=== PATIENT | female | born 1980 | race African-American/Black ===

== ENCOUNTER 2017-07-11 12:15 | Inpatient (IN) | payer OTHER ==
[~2017-07-11] VITALS: Ht 162.6 cm; Wt 131.9 kg
--- NOTE | ~2017-07-11 | HC ---
[facility] [place] [address] CONSULTATION Name: JULISSA PEDRO Room #: 207-P [facility] IN M.R.#: [id number] Admission: 07/11/17 Attend Phys: Lyle Cadet MD Discharge: 07/15/17 Date of : 76 Report #: [id number] THIS REPORT FOR: //name// CC: FAM unknown Itz Escobedo REFERRAL PHYSICIAN: Itz Escobedo DO REASON FOR REFERRAL: Hypoxia. HISTORY OF PRESENT ILLNESS: The patient is a 37-year-old -Welsh female who presents to the emergency room with progressive abdominal pain, chest pain, and dyspnea. A pulmonary consultation was requested. The patient states that she normally gets a care from [facility]. She has been told that she has sleep apnea, COPD, asthma, and heart failure. She has undergone a pacemaker placement in the past. She continues to smoke about 4 cigarettes a day. She was in her usual state of health until earlier yesterday when she started to develop abdominal discomfort, sharp chest pain. For that reason, she presented to the emergency room. Chest x-ray and chest CT were reviewed. Chest x-ray shows vascular congestion. CT chest showed no evidence of pulmonary embolus. Airspace pulmonary edema is noted bilaterally. The patient otherwise denies any recent febrile illness, nausea, vomiting, diarrhea, or productive cough. PAST MEDICAL HISTORY: Notable for asthma, history of COPD, sleep apnea, on CPAP; morbid obesity, cardiomyopathy and heart failure in the past, tobacco abuse, and history of hiatal hernia. PAST SURGICAL HISTORY: As mentioned above, status post pacemaker placement. ALLERGIES: None noted. HOME MEDICATIONS: List are reviewed. This would include aripiprazole, Coreg, trazodone, digoxin, spironolactone, Lasix, Advair, Lipitor, Cymbalta, oxycodone, Topamax, fluticasone nasal spray, Diovan, and albuterol MDI. FAMILY HISTORY: Noncontributory. SOCIAL HISTORY: Tobacco history as mentioned above, smoking less than a half a pack a day, she lives with the family. She denies any alcohol use. Past history of drug abuse. [facility] [address] [address] CONSULTATION Name: JULISSA PEDRO Room #: 207-P [facility] IN [facility].#: [id number] Admission: 07/11/17 Attend Phys: Lyle Cadet MD Discharge: 07/15/17 Date of : 76 Report #: [id number] REVIEW OF SYSTEMS: As mentioned above, it is notable for morbid obesity for many years. Otherwise, 10-point system review negative. PHYSICAL EXAMINATION: GENERAL: She is awake, alert, in no distress. VITAL SIGNS: His temperature is 98 degrees Fahrenheit, pulse is 80, respiratory rate is 18, blood pressure 124/81 mmHg, and saturation is 99%. HEENT: Normocephalic, atraumatic. NECK: Supple without any lymphadenopathy or thyromegaly. CHEST: Breath sounds are decreased bilaterally. Few scattered crackles. No wheezes. CARDIOVASCULAR: Heart sounds are distant. No obvious murmurs or gallops. Pulses are 2+/4+ bilaterally. BREASTS: Deferred. ABDOMEN: Obese, soft, nontender, no organomegaly or masses felt. GENITOURINARY: Deferred. RECTAL: Deferred. EXTREMITIES: Trace edema, no cyanosis or clubbing. LABORATORY DATA: Portable chest x-ray and CT chest as mentioned above showing no obvious evidence of pulmonary emboli, though the exam was felt to be suboptimal due to the patient size, cardiomegaly, bilateral ground glass interstitial opacity and airspace opacities are noted. Urine drug screen was positive for PCP. Ultrasound of the lower extremities showed no evidence of DVT. BNP was 3600. Troponin 0.24. TSH was 0.53, normal. Digoxin level was 0.2. Arterial blood gas revealed pH 7.29, pCO2 of 63, pO2 of 65 on 2 liters of O2. Electrolytes unremarkable. Creatinine is 1.1. Liver function test was grossly unremarkable. Albumin 3.8. WBC 4700, hemoglobin 16.3, platelets are normal, no evidence of bandemia. IMPRESSION: 1. Acute on chronic hypercapnic hypoxic respiratory failure in this 37-year-old morbidly obese -Welsh female. Chest x-ray and chest CT suggest pulmonary edema. She presents with abdominal pain and chest pain with mildly elevated troponin. The patient likely has acute on chronic heart failure, suspect combined. Pulmonary embolus is felt to be less likely. Pneumonia is unlikely given findings. 2. History of obstructive sleep apnea, likely obesity hypoventilation syndrome given abnormal arterial blood gas. 3. History of asthma/chronic obstructive pulmonary disease. The patient likely has asthma related morbid obesity, though because she smoked, cannot rule out chronic obstructive pulmonary disease. 4. Cardiomyopathy, suspect nonischemic related to her sleep disorder. Troponin [facility] [address] [place] [address] CONSULTATION Name: JULISSA PEDRO Room #: 207-P [facility] IN M.R.#: [id number] Admission: 07/11/17 Attend Phys: Lyle Cadet MD Discharge: 07/15/17 Date of : 76 Report #: [id number] is elevated. Cardiology has been consulted. Suspect related to increased myocardial demand due to heart failure. 5. Recent abdominal pain and chest pain as mentioned above. 6. Tobacco abuse. 7. Drug abuse. Urine drug screen was positive for PCP. 8. Morbid obesity. RECOMMENDATION: Agree with current treatment plans including diuresis. We will resume noninvasive positive pressure ventilation during sleep. Wean O2 for saturation 90%. Continue bronchodilators. I do not think the patient needs corticosteroid at this time as presentation is more of heart failure rather than exacerbation of asthma. I have also discussed with the patient the importance of smoke cessation and weight loss given her relatively young age and severe comorbid cardiac and pulmonary disorder. The patient voices understanding. DVT and GI prophylaxis will be addressed. Thank you for this consultation. <ELECTRONICALLY SIGNED> By: Nemesio Jimenez MD 07/18/17 1233 1237 1837 Nemesio Jimenez MD /nt
--- NOTE | ~2017-07-11 | 2DMMODE ---
[facility] [address] [place] [address] 2 D/M-MODE ECHOCARDIOGRAM Name: TREVOR PEDRORaymundo HANNA Room #: 207-P ADM IN M.R.#: [id number] Admission: 07/11/17 Attend Phys: Itz Escobedo, Discharge: Date of : 76 Date of Service: 07/12/17 1435 Report #: [id number] THIS REPORT FOR: //name// APPROVED REPORT Study performed: 07/12/2017 13:13:37 EXAM: Comprehensive 2D, Doppler, and color-flow Echocardiogram Patient Location: Bedside Room #: [facility] Status: routine BSA: 2.28 HR: 77 bpm BP: 124/81 mmHg Other Information Study Quality: Fair Indications Congestive Heart Failure Cardiomyopathy 2D Dimensions RVDd: 48.42 mm LVEF(%): 37.37 (>50%) IVSd: 8.56 (7-11mm) LVOT Diam: 19.58 (18-24mm) LVDd: 68.10 mm PWd: 10.70 (7-11mm) Ascending Ao: 28.93 (22-36mm) LVDs: 55.47 (25-40mm) Aortic Root: 28.13 mm IVC: 2.50 mm Marques's LVEF: 37.37 % Volumes Left Atrial Volume (Systole) Single Plane 4CH: 87.54 mL Single Plane 2CH: 61.93 mL LA ESV Index: 36.00 mL/m2 Aortic Valve AoV Peak Brian.: 1.12 m/s AO Peak Gr.: 5.05 mmHg LVOT Max P.42 mmHg LVOT Max V: 0.92 m/s RACHELLE Vmax: 2.47 cm2 Mitral Valve E/A Ratio: 0.9 MV Decel. Time: 256.32 ms [facility] [employer] [place] [address] 2 D/M-MODE ECHOCARDIOGRAM Name: WILLISTREVORRaymundo HANNA Room #: 207-P [facility] IN M.R.#: [id number] Admission: 07/11/17 Attend Phys: Itz Escobedo, Discharge: Date of : 76 Date of Service: 07/12/17 1435 Report #: [id number] MV E Max Brian.: 0.81 m/s MV A Brian.: 0.91 m/s MV PHT: 74.33 ms IVRT: 96.89 ms Pulmonary Valve PV Peak Brian.: 1.00 m/s PV Peak Gr.: 3.99 mmHg Tricuspid Valve TR Peak Brian.: 3.01 m/s RAP Estimate: 10.00 mmHg TR Peak Gr.: 36.30 mmHg PA Pressure: 46.00 mmHg Left Ventricle Left ventricle is dilated. There is normal left ventricular wall thickness. Left ventricular systolic function is severely decreased. LVEF is 25%. Grade I - abnormal relaxation pattern. Right Ventricle Right ventricle is dilated. Right ventricle is moderately hypokinetic. Pacemaker lead is present in the right ventricle. Atria Left atrium is dilated. Right atrium is dilated. Pacemaker lead is present in the right atrium. Aortic Valve The aortic valve is normal in structure. No aortic regurgitation is present. There is no aortic valvular stenosis. Mitral Valve The mitral valve is normal in structure. Mild mitral regurgitation. No evidence of mitral valve stenosis. Tricuspid Valve The tricuspid valve is normal in structure. There is trace to mild tricuspid regurgitation. The right atrial pressure is estimated at 10 mmHg. There is moderate pulmonary hypertension with an estimated PAP of 46 mmHg. Pulmonic Valve The pulmonary valve is normal in structure. There is no pulmonic valvular regurgitation. Great Vessels The aortic root is normal in size. The ascending aorta is normal in [address] [address] 2 D/M-MODE ECHOCARDIOGRAM Name: JULISSA PEDRO HANNA Room #: 207-P [facility] IN [facility]#: [id number] Admission: 07/11/17 Attend Phys: Itz Escobedo, Discharge: Date of : 76 Date of Service: 07/12/17 1435 Report #: [id number] size. IVC is dilated. Pericardium There is no pericardial effusion. <Conclusion> Left ventricle is dilated. Left ventricular systolic function is severely decreased. LVEF is 25%. Right ventricle is dilated. Right ventricle is moderately hypokinetic. Pacemaker lead is present in the right ventricle. Left atrium is dilated. Right atrium is dilated. Pacemaker lead is present in the right atrium. The aortic valve is normal in structure. The mitral valve is normal in structure. Mild mitral regurgitation. The tricuspid valve is normal in structure. There is trace to mild tricuspid regurgitation. The right atrial pressure is estimated at 10 mmHg. There is moderate pulmonary hypertension with an estimated PAP of 46 mmHg. <ELECTRONICALLY SIGNED> By: Diallo Webb MD 07/12/17 1435 1435 1435 Diallo Webb MD /INF
--- NOTE | ~2017-07-11 | EKG ---
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 07/12/17 0855 1244 1244 Diego Villagomez MD, FACC /EPI
[~2017-07-11 12:15] MED LIST: ADVAIRDISKUS; FUROSEMIDE 20 M20 M1 PO; LANOXIN 0.120.125 M2 PO; SPIRONOLACTONE
[2017-07-11 12:25] VITALS: BP 124/86
[2017-07-11 13:50] LABS: ABG SAMPLE TYPE ARTERIAL; BE(vivo) 1.7 mmol/L (-2 to +3); HCO3 30.3 mmol/L (22.0-26.0); LACTATE 1.55 mmol/L (0.5-2.0); O2(CT) 20.6 mL/dL (15.0-23.0); PCO2 63.5 mmHg (35.0-45.0); PO2 65.1 mmHg (80.0-100.0); pH 7.297 (7.360-7.450); sO2 90.1 % (92.0-98.0); tCO2 32.3 mmol/L (24.0-30.0)
[2017-07-11 13:51] LABS: FIO2 28 %; STICK SITE R.BRACHIAL
[2017-07-11 13:54] LABS: ABSOLUTE NEUTROPHILS 3.4 thou/uL (1.4-8.2); BASOPHILS 1.2 % (0.0-2.0); EOSINOPHILS 1.7 % (0.0-3.0); HEMATOCRIT 49.7 % (37.0-47.0); HEMOGLOBIN 16.3 gm/dL (12.0-15.0); LYMPHOCYTES 17.7 % (24.0-44.0); MCH 33.2 pg (26.0-34.0); MCHC 32.8 g/dL (28.0-37.0); MCV 101.1 fL (80.0-100.0); MONOCYTES 7.4 % (1.0-8.0); PLATELET COUNT 177 thou/uL (150-400); RBC 4.91 mil/uL (4.20-5.00); RDW 16.2 % (10.5-14.5); WBC 4.7 thou/uL (4.0-11.0)
[2017-07-11 13:56] LABS: MANUAL DIFF NO
[2017-07-11 13:58] LABS: CALCIUM 9.4 mg/dL (8.5-10.1); CREATININE 1.1 mg/dL (0.6-1.0); POTASSIUM 4.4 mmol/L (3.5-5.1)
[2017-07-11 14:07] LABS: ALBUMIN 3.8 g/dL (3.4-5.0); TOTAL BILIRUBIN 1.3 mg/dL (<0.1-1.0); TOTAL PROTEIN 7.6 g/dL (6.4-8.2); TROPONIN-I 0.26 ng/mL (<0.04-0.07)
[2017-07-11] MEDS ORDERED: ARIPIPRAZOLE15 MG PO (14:32)
[2017-07-11] MEDS ORDERED: ATORVASTATIN CA40 MG PO (14:34)
[2017-07-11] MEDS ORDERED: CARVEDILOL25 MG PO (14:34)
[2017-07-11] MEDS ORDERED: CYMBALTA60 MG PO (14:35)
[2017-07-11] MEDS ORDERED: TRAZODONE HCL50 MG (14:36)
[2017-07-11] MEDS ORDERED: OXYCODONE HCL10 MG (14:37)
[2017-07-11] MEDS ORDERED: TOPAMAX 25 MG T25 M1 PO (14:38)
[2017-07-11] MEDS ORDERED: OXYCONTIN10 M1 PO (14:40)
[2017-07-11] MEDS ORDERED: ZOFRAN ODT4 MG (14:42)
[2017-07-11] MEDS ORDERED: FLUTICASONE PRO16 GM NS (14:43)
[2017-07-11] MEDS ORDERED: DIOVAN 80 MG TA80 M1 PO (14:44)
[2017-07-11] MEDS ORDERED: VENTOLIN HFA 1818 GM INH (14:45)
[2017-07-11] MEDS ORDERED: DIGOXIN125 MCG PO (14:47)
[2017-07-11 14:52] LABS: ABG SAMPLE TYPE ARTERIAL; BE(vivo) 2.1 mmol/L (-2 to +3); HCO3 30.1 mmol/L (22.0-26.0); LACTATE 1.79 mmol/L (0.5-2.0); O2(CT) 21.6 mL/dL (15.0-23.0); O2Hb 90.4 % (92.0-98.0); PCO2 59.5 mmHg (35.0-45.0); PO2 80.4 mmHg (80.0-100.0); sO2 94.8 % (92.0-98.0); tCO2 31.9 mmol/L (24.0-30.0)
[2017-07-11 14:53] LABS: Pressure Support 8 cm H20; STICK SITE L.RADIAL; pH 7.322 (7.360-7.450)
[2017-07-11 16:28] LABS: APTT 23.4 Seconds (24.5-32.8); INR 1.1; PROTIME 11.1 Seconds (9.3-11.4)
[2017-07-11 17:30] VITALS: BP 124/100
[2017-07-11 18:10] VITALS: BP 140/111
[2017-07-11 19:20] VITALS: BP 158/107
[2017-07-11 23:52] VITALS: BP 129/93
[2017-07-12 00:53] LABS: AMP/METHAMP Negative (Negative); BARBITURATES Negative (Negative); BENZODIAZEPINES Negative (Negative); COCAINE Negative (Negative); METHADONE Negative (Negative); OPIATES Negative (Negative); PCP POSITIVE (Negative); THC Negative (Negative)
[2017-07-12 03:56] VITALS: BP 128/93
[2017-07-12 05:24] LABS: HEMATOCRIT 52.6 % (37.0-47.0); HEMOGLOBIN 16.9 gm/dL (12.0-15.0); MCH 32.5 pg (26.0-34.0); MCHC 32.1 g/dL (28.0-37.0); MCV 101.3 fL (80.0-100.0); PLATELET COUNT 200 thou/uL (150-400); RDW 16.3 % (10.5-14.5); WBC 10.1 thou/uL (4.0-11.0)
[2017-07-12 05:28] LABS: MANUAL DIFF YES
[2017-07-12 05:40] LABS: ANION GAP 5 mmol/L (7-16); BUN 14 mg/dL (7-18); CALCIUM 9.5 mg/dL (8.5-10.1); CHLORIDE 102 mmol/L (98-107); CHOLESTEROL 116 mg/dL (<200); CO2 35 mmol/L (21-32); CREATININE 1.1 mg/dL (0.6-1.0); GLUCOSE 144 mg/dL (74-106); HDL CHOLESTEROL 35 mg/dL (>40); LDL CHOLESTEROL 71 mg/dL (<100); SODIUM 142 mmol/L (136-145); TC:HDL 3.3 Ratio (Not establshd); TRIGLYCERIDE 51 mg/dL (<150); TROPONIN-I 0.19 ng/mL (<0.04-0.07); VLDL 10 mg/dL (<40)
[2017-07-12 05:41] LABS: SERUM ASSESSMENT Clear
[2017-07-12 06:03] LABS: TSH 0.533 uIU/mL (0.358-3.740)
[2017-07-12 07:05] VITALS: BP 129/87
[2017-07-12 07:58] LABS: ABSOLUTE NEUTROPHILS 9.1 thou/uL (1.4-8.2); ANISOCYTOSIS 1+; TOTAL CELL COUNT 100
[2017-07-12 10:25] LABS: ABG SAMPLE TYPE ARTERIAL; BE(vivo) 4.7 mmol/L (-2 to +3); HCO3 31.2 mmol/L (22.0-26.0); LACTATE 1.43 mmol/L (0.5-2.0); O2Hb 93.4 % (92.0-98.0); STICK SITE L.RADIAL; pH 7.396 (7.360-7.450); sO2 95.5 % (92.0-98.0); tCO2 32.8 mmol/L (24.0-30.0)
[2017-07-12 11:32] VITALS: BP 124/81
[2017-07-12 15:37] VITALS: BP 139/100
[2017-07-12 19:25] VITALS: BP 132/88
[2017-07-13 01:11] LABS: GLYCOHEMOGLOBIN (HGB A1C) 6.9 % (4.8-5.6)
[2017-07-13 03:09] LABS: ABSOLUTE NEUTROPHILS 9.9 thou/uL (1.4-8.2); BASOPHILS 0.2 % (0.0-2.0); EOSINOPHILS 0.8 % (0.0-3.0); HEMATOCRIT 49.5 % (37.0-47.0); HEMOGLOBIN 15.7 gm/dL (12.0-15.0); LYMPHOCYTES 11.9 % (24.0-44.0); MCHC 31.6 g/dL (28.0-37.0); MCV 101.1 fL (80.0-100.0); MONOCYTES 6.5 % (1.0-8.0); PLATELET COUNT 191 thou/uL (150-400); POLYS 80.6 % (36.0-66.0); RDW 16.2 % (10.5-14.5); WBC 12.3 thou/uL (4.0-11.0)
[2017-07-13 03:16] LABS: MANUAL DIFF NO
[2017-07-13 03:30] LABS: ALBUMIN 3.4 g/dL (3.4-5.0); CALCIUM 9.1 mg/dL (8.5-10.1); CREATININE 1.4 mg/dL (0.6-1.0); MAGNESIUM 1.8 mg/dL (1.8-2.4); POTASSIUM 3.7 mmol/L (3.5-5.1); TOTAL BILIRUBIN 0.9 mg/dL (<0.1-1.0); TOTAL PROTEIN 6.8 g/dL (6.4-8.2)
[2017-07-13 05:27] VITALS: BP 132/88
[2017-07-13 07:05] LABS: ABG SAMPLE TYPE ARTERIAL; BE(vivo) 5.8 mmol/L (-2 to +3); HCO3 34.3 mmol/L (22.0-26.0); LACTATE 1.39 mmol/L (0.5-2.0); O2(CT) 22.2 mL/dL (15.0-23.0); O2Hb 93.8 % (92.0-98.0); PCO2 65.4 mmHg (35.0-45.0); PO2 79.4 mmHg (80.0-100.0); pH 7.338 (7.360-7.450); sO2 94.7 % (92.0-98.0); tCO2 36.3 mmol/L (24.0-30.0)
[2017-07-13 07:06] LABS: STICK SITE R.BRACHIAL
[2017-07-13 07:15] VITALS: BP 112/74
[2017-07-13 11:20] VITALS: BP 110/72
[2017-07-13 15:20] VITALS: BP 101/78
[2017-07-13 20:30] VITALS: BP 109/72
[2017-07-14 04:30] VITALS: BP 116/68
[2017-07-14 06:42] LABS: CALCIUM 9.2 mg/dL (8.5-10.1); CREATININE 1.2 mg/dL (0.6-1.0); POTASSIUM 3.8 mmol/L (3.5-5.1)
[2017-07-14 09:33] VITALS: BP 139/84
[2017-07-14 11:02] VITALS: BP 107/63
[2017-07-14 19:56] VITALS: BP 128/86
[2017-07-15 03:00] VITALS: BP 121/81
[2017-07-15 03:26] LABS: CALCIUM 9.4 mg/dL (8.5-10.1); CREATININE 1.1 mg/dL (0.6-1.0); POTASSIUM 3.2 mmol/L (3.5-5.1)
[2017-07-15 07:29] VITALS: BP 109/78
[2017-07-15 07:29] LABS: ABG SAMPLE TYPE ARTERIAL; BE(vivo) 12.5 mmol/L (-2 to +3); HCO3 40.2 mmol/L (22.0-26.0); LACTATE 1.64 mmol/L (0.5-2.0); O2(CT) 24.2 mL/dL (15.0-23.0); O2Hb 86.8 % (92.0-98.0); PCO2 59.1 mmHg (35.0-45.0); pH 7.451 (7.360-7.450); tCO2 42.1 mmol/L (24.0-30.0)
[2017-07-15 07:32] LABS: PO2 49.8 mmHg (80.0-100.0); STICK SITE R.BRACHIAL
[2017-07-15] MEDS ORDERED: POTASSIUM20 PO (07:56)
[2017-07-15 12:21] VITALS: BP 128/83
[2017-07-15 13:37] VITALS: BP 128/83
[2017-07-15 15:30] VITALS: BP 128/83
== END 2017-07-15 15:41 | disposition home or self-care (01) | DRG 291 ==
LOC: ER 12:15 → 2N 16:33 → EROBS 16:33 → 2N 17:33 → ENTRNSPT 07-15 15:25 → EDTRNSPTSTS 07-15 15:29 → 2N 07-15 15:41
PROVIDERS: Internal Medicine Endocrinology, Diabetes & Metabolism; Internal Medicine Geriatric Medicine; Internal Medicine Pulmonary Disease; Nurse Practitioner Family; Physician Assistant
PROC: 5A09457 Assistance with Respiratory Ventilation, 24-96 Consecutive Hours, Continuous Positive Airway Pressure (ICD-10-PCS; principal; 2017-07-11)
DX: I11.0 Hypertensive heart disease with heart failure (principal); J96.21 Acute and chronic respiratory failure with hypoxia; J96.22 Acute and chronic respiratory failure with hypercapnia; J44.1 Chronic obstructive pulmonary disease with (acute) exacerbation; J98.11 Atelectasis; Z68.42 Body mass index [BMI] 45.0-49.9, adult; I50.23 Acute on chronic systolic (congestive) heart failure; G47.33 Obstructive sleep apnea (adult) (pediatric); E66.01 Morbid (severe) obesity due to excess calories; F19.10 Other psychoactive substance abuse, uncomplicated; F17.210 Nicotine dependence, cigarettes, uncomplicated; F32.9 Major depressive disorder, single episode, unspecified; E78.5 Hyperlipidemia, unspecified; G47.00 Insomnia, unspecified; B33.24 Viral cardiomyopathy; Z95.0 Presence of cardiac pacemaker; Z86.73 Personal history of transient ischemic attack (TIA), and cerebral infarction without residual deficits; Z79.899 Other long term (current) drug therapy; Z71.41 Alcohol abuse counseling and surveillance of alcoholic; Z71.6 Tobacco abuse counseling; Z99.81 Dependence on supplemental oxygen
CPT/HCPCS: 10194